=== PATIENT | female | born 2000 | race Caucasian/White ===

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

== ENCOUNTER 2019-10-12 02:52 | Emergency (ER) | payer BC, SELFPAY ==
[~2019-10-12] VITALS: Ht 165.1 cm; Wt 52.3 kg
[2019-10-12 02:52] VITALS: BP 125/66
== END 2019-10-12 03:37 | disposition left against medical advice (07) ==
LOC: M ED 02:52
DX: Z53.21 Procedure and treatment not carried out due to patient leaving prior to being seen by health care provider (principal)

== ENCOUNTER 2020-03-01 13:33 | Emergency (ER) | payer SELFPAY ==
[~2020-03-01] VITALS: Ht 160 cm; Wt 65.9 kg
[2020-03-01] MEDS ORDERED: BUPR150T3 PO (13:55)
[2020-03-01] MEDS ORDERED: LEXA5TAB13 PO (13:55)
[2020-03-01] MEDS ORDERED: KETOROLAC 60MG 2ML VIAL IM ONE (14:15)
--- NOTE | 2020-03-01 15:06 | REP ---
INDICATION: increased pain after IUD placed on verify correct placement COMPARISON: None. TECHNIQUE: Transabdominal pelvic ultrasound followed by transvaginal examination for better evaluation of the endometrium and adnexa with color Doppler evaluation of the ovaries. FINDINGS: Bladder is unremarkable and measures 6.9 x 2.3 x 2.7 cm. Normal anteverted uterus measures 7.3 x 3.2 x 5.0 cm. The endometrial complex measures 4.9 mm thickness. IUD identified in central position, but the left arm of the IUD appears to extend into the myometrium. Bilateral ovaries are normal in appearance and vascularity without evidence for torsion. Right ovary measures 2.2 x 2.2 x 1.9 cm; R I = 0.56. Left ovary measures 3.0 x 2.6 x 2.4 cm and includes 2.2 x 1.8 x 2.0 cm dominant follicle; R I = 0.54. Trace pelvic fluid likely physiologic. No adnexal mass lesion identified. IMPRESSION: Anteverted uterus. IUD as described above with the left arm possibly extending into the myometrium. Otherwise normal examination. <Electronically signed by Christopher Stiles > 03/01/20 [id number]
[2020-03-01 15:28] VITALS: BP 119/72
--- NOTE | 2020-03-02 10:57 | ED PDOC ---
Post-Departure Follow-Up dr weller faxed formal report of pelvic us for fu Austyn Devine MD Mar 02, 2020 10:57
== END 2020-03-01 15:32 | disposition home or self-care (01) ==
LOC: M ED 13:33
DX: T83.84XA Pain due to genitourinary prosthetic devices, implants and grafts, initial encounter (principal); Y76.2 Prosthetic and other implants, materials and accessory obstetric and gynecological devices associated with adverse incidents; Z79.899 Other long term (current) drug therapy
CPT/HCPCS: 76830; 76856; 93976; 96372; 99283; J1885

== ENCOUNTER → 2020-03-05 | Outpatient (CLI) | payer SELFPAY ==
[~2020-03-05] MED LIST: BUPR150T3 PO; LEXA5TAB13 PO
== END ==
LOC: M LABSMTC 11:37
PROVIDERS: ATTEND Pediatrics
DX: Z20.828 Contact with and (suspected) exposure to other viral communicable diseases (principal)

== ENCOUNTER → 2020-05-18 | Outpatient (REF) ==
[~2020-05-18] MED LIST changes: -BUPR150T3 PO; +BUPR150T4 PO
== END ==
LOC: M LABSMTC 10:15
PROVIDERS: ATTEND Pediatrics
DX: Z20.822 Contact with and (suspected) exposure to COVID-19 (principal)

== ENCOUNTER → 2020-08-02 | Outpatient (REF) ==
[~2020-08-02] MED LIST changes: +BUPR150T12 PO; -BUPR150T4 PO
== END ==
LOC: M LABSMTC 10:19
PROVIDERS: ATTEND Pediatrics
DX: Z11.52 Encounter for screening for COVID-19 (principal)

== ENCOUNTER → 2021-02-08 | Outpatient (REF) ==
[2021-02-08 15:23] LABS: RSV AMPLIFICATION NEGATIVE (NEGATIVE)
== END ==
LOC: M EMP 12:56
PROVIDERS: ATTEND Family Medicine
DX: Z11.52 Encounter for screening for COVID-19 (principal)

== ENCOUNTER → 2021-11-15 | Outpatient (REF) | payer BC ==
[~2021-11-15] MED LIST changes: +FLON1SPR NARES; +FLUO10CA18 PO; +FLUO20CA22 PO; +HYDR-643 PO; +PRAZ2CAP PO; +TRAZ-252 PO
== END ==
LOC: M SFHCWAGY 16:50
PROVIDERS: ATTEND Specialist
DX: Z34.03 Encounter for supervision of normal first pregnancy, third trimester (principal)

== ENCOUNTER 2021-11-26 11:57 | Outpatient (CLI) | payer BC ==
[~2021-11-26] VITALS: Ht 167.6 cm; Wt 72.9 kg
[2021-11-26 12:16] VITALS: BP 128/96
[2021-11-26] MEDS ORDERED: PRENTAB9 PO (12:26)
[2021-11-26] MEDS ORDERED: HOME MED LIST COMPLETE! XX SCH (12:30)
[2021-11-26 12:56] VITALS: BP 137/81
[2021-11-26 13:04] VITALS: BP 126/88
== END 2021-11-26 13:09 | disposition home or self-care (01) ==
LOC: M LDO 11:57
PROVIDERS: ATTEND Advanced Practice Midwife
DX: O47.1 False labor at or after 37 completed weeks of gestation (principal); O36.8130 Decreased fetal movements, third trimester, not applicable or unspecified; O99.343 Other mental disorders complicating pregnancy, third trimester; F32.A Depression, unspecified; F41.9 Anxiety disorder, unspecified; Z3A.38 38 weeks gestation of pregnancy
CPT/HCPCS: 59025; 76815; G0463

== ENCOUNTER → 2022-01-20 | Outpatient (CLI) | payer BC, MEDICAID ==
[~2022-01-20] MED LIST changes: +ACET-683 PO; +IBUP-1022 PO; +PRENTAB9 PO
[2022-01-20 18:08] LABS: GC DNA AMPLIFICATION NEGATIVE (NEGATIVE)
[2022-01-20 18:21] LABS: HEPATITIS B SURFACE ANTIGEN NEGATIVE (NEGATIVE); HEPATITIS C VIRUS ABY INDEX < 0.0 INDEX (<0.8); HIV 1&2 SCREEN CENTAUR NEGATIVE (NEGATIVE)
== END ==
LOC: M LAB 15:30
PROVIDERS: ATTEND Obstetrics & Gynecology
DX: Z20.2 Contact with and (suspected) exposure to infections with a predominantly sexual mode of transmission (principal)

== ENCOUNTER → 2022-01-20 | Outpatient (REF) | payer BC, MEDICAID ==
[2022-01-20 17:03] LABS: GC DNA AMPLIFICATION NEGATIVE (NEGATIVE)
== END ==
LOC: M SFHCWAGY 13:24
PROVIDERS: ATTEND Obstetrics & Gynecology
DX: Z20.2 Contact with and (suspected) exposure to infections with a predominantly sexual mode of transmission (principal)

== ENCOUNTER 2022-02-19 13:14 | Emergency (ER) | payer BC, MEDICAID ==
[~2022-02-19] VITALS: Ht 167.6 cm; Wt 56.8 kg
[2022-02-19 15:27] VITALS: BP 122/71
[2022-02-19] MEDS ORDERED: ACETAMINOPHEN 500 MG TAB PO ONE (15:50)
== END 2022-02-19 16:08 | disposition home or self-care (01) ==
LOC: M ED 15:06
DX: J09.X2 Influenza due to identified novel influenza A virus with other respiratory manifestations (principal); R05.9 Cough, unspecified; Z88.0 Allergy status to penicillin; Z79.899 Other long term (current) drug therapy

== ENCOUNTER 2022-08-29 12:11 | Emergency (ER) | payer BC, MEDICAID ==
[~2022-08-29] VITALS: Ht 167.6 cm; Wt 52.0 kg
[2022-08-29] MEDS ORDERED: FLUO40CA PO (12:41)
[2022-08-29 13:15] LABS: HEMOGLOBIN 12.9 g/dl (12.0-15.5); MEAN CORPUSCULAR HEMOGLOBIN 25.8 pg (27.0-33.0); MEAN CORPUSCULAR HGB CONC 31.5 g/dl (32.0-36.5); PLATELET COUNT, AUTOMATED 219 10^3/uL (150-450)
[2022-08-29 13:41] LABS: ETHYL ALCOHOL (ETHANOL) < 0.003 % (0.000-0.010)
[2022-08-29 13:42] LABS: SALICYLATE LEVEL < 3.0 MG/DL (<30)
[2022-08-29 13:43] LABS: ACETAMINOPHEN LEVEL < 2.0 UG/ML (10.0-20.0); ALKALINE PHOSPHATASE 71 U/L (46-116); ALT/SGPT 13 U/L (7.0-40); AST/SGOT 12 U/L (<34); BILIRUBIN,DIRECT 0.2 MG/DL (<0.4); BILIRUBIN,TOTAL 0.6 MG/DL (0.3-1.2); BLOOD UREA NITROGEN 9 MG/DL (9-23); CALCIUM LEVEL 9.2 MG/DL (8.5-10.1); CARBON DIOXIDE LEVEL 26 MMOL/L (20-31); CHLORIDE LEVEL 106 MMOL/L (98-107); CREATININE FOR GFR 0.68 MG/DL (0.55-1.30); GLOMERULAR FILTRATION RATE > 60.0 (>60); GLUCOSE, FASTING 83 MG/DL (60-100); HCG, SERUM QUALITATIVE NEGATIVE (NEGATIVE); POTASSIUM SERUM 4.4 MMOL/L (3.5-5.1); SODIUM LEVEL 139 MMOL/L (136-145); TOTAL PROTEIN 7.3 G/DL (5.7-8.2)
[2022-08-29 13:45] LABS: THYROID STIMULATING HORMONE 0.206 uIU/ML (0.55-4.78)
[2022-08-29 14:05] VITALS: BP 108/63
== END 2022-08-29 14:31 | disposition home or self-care (01) ==
LOC: M ED 12:11
DX: F32.A Depression, unspecified (principal); F12.90 Cannabis use, unspecified, uncomplicated; F41.9 Anxiety disorder, unspecified; Z88.0 Allergy status to penicillin; Z79.899 Other long term (current) drug therapy

== ENCOUNTER → 2022-09-12 | Outpatient (REF) | payer MEDICAID ==
[~2022-09-12] MED LIST changes: +FLUO40CA PO
[2022-09-12 14:59] LABS: FREE T4 0.95 NG/DL (0.89-1.76); THYROID STIMULATING HORMONE 0.241 uIU/ML (0.55-4.78)
[2022-09-12 15:01] LABS: FREE T3 3.4 PG/ML (2.3-4.2)
[2022-09-12 18:16] LABS: THYROGLOBULIN ANTIBODY < 15.0 U/ML (<60.0); THYROID PEROXIDASE ANTIBODY < 28.0 U/ML (<60.0)
== END ==
LOC: M LAB REF 13:04
PROVIDERS: ATTEND Physician Assistant
DX: E05.90 Thyrotoxicosis, unspecified without thyrotoxic crisis or storm (principal)

== ENCOUNTER → 2022-12-13 | Outpatient (CLI) | payer MEDICAID ==
[2022-12-13 12:28] LABS: HIV 1&2 SCREEN NEGATIVE (NEGATIVE)
[2022-12-13 12:34] LABS: HEPATITIS B CORE ANTIBODY IGM NEGATIVE (NEGATIVE); HEPATITIS C VIRUS ABY INDEX 0.12 INDEX (<0.8)
== END ==
LOC: M LAB 10:39
PROVIDERS: ATTEND Obstetrics & Gynecology
DX: Z20.2 Contact with and (suspected) exposure to infections with a predominantly sexual mode of transmission (principal)

== ENCOUNTER → 2023-02-27 | Outpatient (REF) | payer BC ==
[2023-02-27 19:37] LABS: CHLAMYDIA DNA AMPLIFICATION NEGATIVE (NEGATIVE); GC DNA AMPLIFICATION NEGATIVE (NEGATIVE)
== END ==
LOC: M SFHCWAGY 16:59
PROVIDERS: ATTEND Nurse Practitioner Family
DX: Z11.3 Encounter for screening for infections with a predominantly sexual mode of transmission (principal)

== ENCOUNTER → 2023-04-04 | Outpatient (REF) | LOC: M EMP 07:56 | PROVIDERS: ATTEND Family Medicine | DX: Z11.52 Encounter for screening for COVID-19 (principal) ==

== ENCOUNTER → 2023-04-07 | Outpatient (REF) | LOC: M EMP 10:06 | PROVIDERS: ATTEND Family Medicine | DX: Z11.52 Encounter for screening for COVID-19 (principal) ==

== ENCOUNTER 2023-04-20 12:17 | Day surgery (SDC) | payer BC ==
[~2023-04-20] VITALS: Ht 167.6 cm; Wt 58.2 kg
[~2023-04-20 12:17] MED LIST changes: +KETOROLAC 60MG 2ML VIAL As Ordered ONE; +LIDOCAINE 2% 100MG/5ML SDV (FOR ANES.) As Ordered ONE; +MIDAZOLAM INJ 2MG/2ML VIAL As Ordered ONE; +ONDANSETRON 4MG 2ML VIAL As Ordered ONE; +PRENTAB53 PO; +fentaNYL 100 MCG/2 ML INJECTION As Ordered ONE; +propofoL 200 MG/20 ML VIAL As Ordered ONE
[2023-04-20] MEDS ORDERED: LR 1,000 ML IV SCH ×3 (12:45→14:55)
[2023-04-20] MEDS ORDERED: METHYLERGONOVINE MALEATE 0.2MG/ML 1ML VIAL As Ordered ONE (14:31)
[2023-04-20] MEDS ORDERED: fentaNYL 100 MCG/2 ML INJECTION IV PRN (14:45)
[2023-04-20] MEDS ORDERED: oxyCODONE 5MG TAB PO PRN (14:45)
[2023-04-20] MEDS: DOXYCYCLINE HYCLATE 100MG TABLET PO ONE (15:10)
[2023-04-20] MEDS: ACETAMINOPHEN 500 MG TAB PO ONE (15:11)
[2023-04-20 15:25] VITALS: BP 127/74; TEMP 98.8; O2SAT 99
[2023-04-20] MEDS: ONDANSETRON 4MG 2ML VIAL IV PRN (15:43)
[2023-05-03 08:03] LABS: CHROMPC1 SEE SEPARATE REPORT
== END 2023-04-20 16:00 | disposition home or self-care (01) ==
LOC: M SDC 12:17
PROVIDERS: ATTEND Specialist
DX: O02.1 Missed abortion (principal); F32.A Depression, unspecified; F41.9 Anxiety disorder, unspecified; Z79.899 Other long term (current) drug therapy; F17.290 Nicotine dependence, other tobacco product, uncomplicated
CPT/HCPCS: 59820; 81229; 88233; 88262; 88291; 88305; J1100; J1885; J2210; J2250; J2405; J3010; S0191

== ENCOUNTER 2023-08-20 13:27 | Emergency (ER) | payer BC ==
[~2023-08-20] VITALS: Ht 167.6 cm; Wt 58.5 kg
[~2023-08-20 13:27] MED LIST changes: +FLUO-290 PO; -FLUO10CA18 PO; -KETOROLAC 60MG 2ML VIAL As Ordered ONE; -LIDOCAINE 2% 100MG/5ML SDV (FOR ANES.) As Ordered ONE; -MIDAZOLAM INJ 2MG/2ML VIAL As Ordered ONE; -ONDANSETRON 4MG 2ML VIAL As Ordered ONE; -fentaNYL 100 MCG/2 ML INJECTION As Ordered ONE; -propofoL 200 MG/20 ML VIAL As Ordered ONE
[2023-08-20 14:59] LABS: HEMATOCRIT 37.5 % (36.0-47.0); HEMOGLOBIN 11.9 g/dl (12.0-15.5); MEAN CORPUSCULAR HEMOGLOBIN 25.3 pg (27.0-33.0); MEAN CORPUSCULAR HGB CONC 31.7 g/dl (32.0-36.5); MEAN CORPUSCULAR VOLUME 79.6 fl (80.0-96.0); PLATELET COUNT, AUTOMATED 193 10^3/uL (150-450); RED BLOOD COUNT 4.71 10^6/uL (4.00-5.40); WHITE BLOOD COUNT 9.3 10^3/uL (4.0-10.0)
[2023-08-20 16:26] VITALS: BP 142/82; TEMP 97.5; O2SAT 99
== END 2023-08-20 16:29 | disposition home or self-care (01) ==
LOC: M ED 13:27
DX: O20.0 Threatened abortion (principal); Z3A.01 Less than 8 weeks gestation of pregnancy; O99.330 Smoking (tobacco) complicating pregnancy, unspecified trimester; O99.320 Drug use complicating pregnancy, unspecified trimester; Z88.0 Allergy status to penicillin; Z79.899 Other long term (current) drug therapy

== ENCOUNTER 2023-08-29 08:41 | Day surgery (SDC) | payer BC ==
[~2023-08-29] VITALS: Ht 167.6 cm; Wt 56.7 kg
[2023-08-29] MEDS ORDERED: LR 1,000 ML IV SCH (09:15)
[2023-08-29 09:38] LABS: HEMATOCRIT 34.5 % (36.0-47.0); HEMOGLOBIN 11.1 g/dl (12.0-15.5); MEAN CORPUSCULAR HEMOGLOBIN 25.8 pg (27.0-33.0); MEAN CORPUSCULAR HGB CONC 32.2 g/dl (32.0-36.5); PLATELET COUNT, AUTOMATED 197 10^3/uL (150-450); RED BLOOD COUNT 4.31 10^6/uL (4.00-5.40); WHITE BLOOD COUNT 5.7 10^3/uL (4.0-10.0)
[2023-08-29 10:26] LABS: THYROID STIMULATING HORMONE 0.074 uIU/ML (0.55-4.78); THYROXINE (T4) 11.2 UG/DL (4.5-10.9)
[2023-08-29 10:29] LABS: FREE THYROXINE INDEX 4.3 % (1.3-4.8); T UPTAKE 38.8 % (22.5-37.0)
[2023-08-29] MEDS ORDERED: LIDOCAINE 2% 100MG/5ML SDV (FOR ANES.) As Ordered ONE (11:44)
[2023-08-29] MEDS ORDERED: propofoL 200 MG/20 ML VIAL As Ordered ONE (11:44)
[2023-08-29] MEDS ORDERED: MIDAZOLAM INJ 2MG/2ML VIAL As Ordered ONE (11:44)
[2023-08-29] MEDS ORDERED: ONDANSETRON 4MG 2ML VIAL As Ordered ONE (11:44)
[2023-08-29] MEDS ORDERED: fentaNYL 100 MCG/2 ML INJECTION As Ordered ONE (11:44)
[2023-08-29] MEDS ORDERED: ACETAMINOPHEN 1000MG 100ML IV BAG As Ordered ONE (11:49)
[2023-08-29] MEDS: LIDOCAINE 1% MDV 20ML VIAL As Ordered ONE (11:54)
[2023-08-29] MEDS ORDERED: KETOROLAC 60MG 2ML VIAL As Ordered ONE (11:58)
[2023-08-29] MEDS: DOXYCYCLINE HYCLATE 100MG TABLET PO STA (12:35)
[2023-08-29 12:50] VITALS: BP 116/57; TEMP 97.7; O2SAT 99
== END 2023-08-29 12:58 | disposition home or self-care (01) ==
LOC: M SDC 08:41
PROVIDERS: ATTEND Specialist
DX: O02.1 Missed abortion (principal); Z86.19 Personal history of other infectious and parasitic diseases; N96 Recurrent pregnancy loss; F41.9 Anxiety disorder, unspecified; F32.A Depression, unspecified; F12.10 Cannabis abuse, uncomplicated; Z79.899 Other long term (current) drug therapy; Z88.0 Allergy status to penicillin
CPT/HCPCS: 36415; 59812; 84436; 84443; 84479; 85027; 88305; J0131; J1100; J1885; J2250; J2405; J3010

== ENCOUNTER → 2023-09-14 | Outpatient (CLI) | payer BC ==
[~2023-09-14] MED LIST changes: +FLUO-365 PO; -FLUO20CA22 PO
[2023-09-14 15:49] LABS: FREE T4 0.96 NG/DL (0.89-1.76)
[2023-09-14 15:50] LABS: THYROID STIMULATING HORMONE 0.118 uIU/ML (0.55-4.78)
== END ==
LOC: M PLALAB 14:08
PROVIDERS: ATTEND Specialist
DX: E05.90 Thyrotoxicosis, unspecified without thyrotoxic crisis or storm (principal)

== ENCOUNTER → 2023-10-23 | Outpatient (REF) | payer BC ==
[2023-10-23 19:32] LABS: THYROID STIMULATING HORMONE 0.198 uIU/ML (0.55-4.78); THYROXINE (T4) 7.7 UG/DL (4.5-10.9)
[2023-10-23 19:35] LABS: FREE THYROXINE INDEX 2.5 % (1.3-4.8); T UPTAKE 32.8 % (22.5-37.0)
== END ==
LOC: M LAB REF 16:46
PROVIDERS: ATTEND Physician Assistant
DX: E05.90 Thyrotoxicosis, unspecified without thyrotoxic crisis or storm (principal)

== ENCOUNTER → 2023-11-22 | Outpatient (CLI) | payer BC | LOC: M WHC 07:08 | PROVIDERS: ATTEND Physician Assistant | DX: E05.90 Thyrotoxicosis, unspecified without thyrotoxic crisis or storm (principal) ==

== ENCOUNTER → 2024-04-15 | Outpatient (CLI) | payer OTHER ==
[2024-04-15 18:51] LABS: THYROID STIMULATING HORMONE 0.493 uIU/ML (0.55-4.78)
[2024-04-15 18:52] LABS: FREE T4 0.96 NG/DL (0.89-1.76)
[2024-04-15 18:55] LABS: TOTAL T3 114.1 NG/DL (60.0-181.0)
== END ==
LOC: M PLALAB 14:25
PROVIDERS: ATTEND Nurse Practitioner Family
DX: E05.00 Thyrotoxicosis with diffuse goiter without thyrotoxic crisis or storm (principal)

== ENCOUNTER → 2024-08-05 | Outpatient (REF) | payer BC, OTHER | LOC: M LAB REF 12:31 | PROVIDERS: ATTEND Specialist | DX: N91.2 Amenorrhea, unspecified (principal) ==

== ENCOUNTER → 2024-08-07 | Outpatient (REF) | payer BC, OTHER | LOC: M LAB REF 12:17 | PROVIDERS: ATTEND Specialist | DX: N91.2 Amenorrhea, unspecified (principal) ==

== ENCOUNTER → 2024-08-09 | Outpatient (CLI) | payer BC, OTHER | LOC: M PLALAB 09:33 | PROVIDERS: ATTEND Specialist | DX: N91.2 Amenorrhea, unspecified (principal) ==

== ENCOUNTER → 2024-08-20 | Outpatient (CLI) | payer OTHER ==
[2024-08-20 15:37] LABS: HEMATOCRIT 36.9 % (36.0-47.0); HEMOGLOBIN 12.1 g/dl (12.0-15.5); MEAN CORPUSCULAR HEMOGLOBIN 28.3 pg (27.0-33.0); MEAN CORPUSCULAR HGB CONC 32.8 g/dl (32.0-36.5); MEAN CORPUSCULAR VOLUME 86.2 fl (80.0-96.0); PLATELET COUNT, AUTOMATED 200 10^3/uL (150-450); RED BLOOD COUNT 4.28 10^6/uL (4.00-5.40); WHITE BLOOD COUNT 8.6 10^3/uL (4.0-10.0)
[2024-08-20 16:10] LABS: HIV 1&2 SCREEN NEGATIVE (NEGATIVE)
[2024-08-20 16:19] LABS: HEPATITIS C VIRUS ABY INDEX 0.04 INDEX (<0.8)
[2024-08-20 17:00] LABS: GC DNA AMPLIFICATION NEGATIVE (NEGATIVE)
[2024-08-22 15:59] LABS: Trichomonas vaginalis (AMP) NOT DETECTED (NEGATIVE)
== END ==
LOC: M PLALAB 12:43
PROVIDERS: ATTEND Specialist
DX: Z34.81 Encounter for supervision of other normal pregnancy, first trimester (principal)

== ENCOUNTER → 2024-11-18 | Outpatient (CLI) | payer OTHER ==
[~2024-11-18] MED LIST changes: +CLIN-250; +ONDA-282
== END ==
LOC: M WHC 10:00
PROVIDERS: ATTEND Advanced Practice Midwife
DX: Z36.89 Encounter for other specified antenatal screening (principal); Z3A.19 19 weeks gestation of pregnancy

== ENCOUNTER → 2025-01-08 | Outpatient (CLI) | payer OTHER ==
[~2025-01-08] MED LIST changes: -IBUP-1022 PO; +IBUP600T42 PO
[2025-01-08 11:03] LABS: PLATELET COUNT, AUTOMATED 183 10^3/uL (150-450)
[2025-01-08 11:42] LABS: HIV 1&2 SCREEN NEGATIVE (NEGATIVE)
[2025-01-08 11:49] LABS: HEPATITIS C VIRUS ABY INDEX 0.03 INDEX (<0.8)
[2025-01-08 12:14] LABS: Trichomonas vaginalis (AMP) NOT DETECTED (NEGATIVE)
[2025-01-08 12:37] LABS: GC DNA AMPLIFICATION NEGATIVE (NEGATIVE)
== END ==
LOC: M PLALAB 08:25
PROVIDERS: ATTEND Obstetrics & Gynecology
DX: Z34.82 Encounter for supervision of other normal pregnancy, second trimester (principal)

== ENCOUNTER → 2025-01-18 | Outpatient (CLI) | payer OTHER | LOC: M LAB 10:53 | PROVIDERS: ATTEND Obstetrics & Gynecology | DX: Z34.82 Encounter for supervision of other normal pregnancy, second trimester (principal) ==

== ENCOUNTER 2025-02-11 09:48 | Outpatient (CLI) | payer OTHER ==
[~2025-02-11] VITALS: Ht 167.6 cm; Wt 69.1 kg
[2025-02-11 10:05] VITALS: BP 124/76
[2025-02-11 11:41] LABS: APPEARANCE, URINE HAZY (CLEAR); BACTERIA, URINE AUTO NEGATIVE (NEGATIVE); BILIRUBIN, URINE AUTO NEGATIVE (NEGATIVE); BLOOD, URINE BLOOD 3+ (NEGATIVE); GLUCOSE, URINE (UA) AUTO NEGATIVE (NEGATIVE); KETONE, URINE AUTO NEGATIVE (NEGATIVE); LEUKOCYTE ESTERASE, URINE AUTO NEGATIVE (NEGATIVE); NITRITE, URINE AUTO NEGATIVE (NEGATIVE); PROTEIN, URINE AUTO NEGATIVE (NEGATIVE); RBC, URINE AUTO TNTC /HPF (0-3); SPECIFIC GRAVITY URINE AUTO 1.012 (1.002-1.035); SQUAMOUS EPITHELIAL CELL UR AU 1 /HPF (0-6); UROBILINOGEN, URINE AUTO 0.2 mg/dL (0.0-2.0); WBC, URINE AUTO 0 /HPF (0-3)
[2025-02-11] MEDS ORDERED: BICITRA 30 ML SOLN UDC PO ONE (13:45)
[2025-02-11] MEDS ORDERED: FLUID PLACE HOLDER IV ONE (13:45)
[2025-02-11] MEDS ORDERED: MAG Sulf (OBGYN) 20GM/500ML 20,000 MG in IV 1 EA IV SCH (13:45)
[2025-02-11] MEDS ORDERED: LR 1,000 ML IV SCH (13:45)
[2025-02-11] MEDS ORDERED: CALCIUM GLUCONATE 1,000 MG in DEXTROSE 5% (D5W) MINI-BAG PLU 100 ML IV PRN (13:45)
[2025-02-11] MEDS ORDERED: OXYTOCIN DRIP 30 UNITS in IV 1 EA IV PRN (13:45)
[2025-02-11] MEDS ORDERED: TRANEXAMIC ACID INJection 1,000 MG in NS 100 ML IV PRN (13:45)
[2025-02-11] MEDS ORDERED: LABETALOL 100 MG/20 ML VIAL IV PRN (13:45)
[2025-02-11] MEDS ORDERED: GENTAMICIN IV ONE (13:45)
[2025-02-11] MEDS ORDERED: CLINDAMYCIN 900 MG in IV 1 EA IV ONE (13:45)
== END 2025-02-11 12:15 | disposition home or self-care (01) ==
LOC: M LDO 09:48
PROVIDERS: ATTEND Obstetrics & Gynecology
DX: O47.03 False labor before 37 completed weeks of gestation, third trimester (principal); O26.23 Pregnancy care for patient with recurrent pregnancy loss, third trimester; Z3A.31 31 weeks gestation of pregnancy; Z86.2 Personal history of diseases of the blood and blood-forming organs and certain disorders involving the immune mechanism
CPT/HCPCS: 59025; 81001; 87086; G0463

== ENCOUNTER → 2025-03-14 | Outpatient (REF) | payer OTHER | LOC: M SFHCWAGY 09:55 | PROVIDERS: ATTEND Specialist | DX: Z34.83 Encounter for supervision of other normal pregnancy, third trimester (principal) ==